=== PATIENT | male | born 2005 | race Two or more races ===

== ENCOUNTER 2025-02-02 18:57 | Emergency (ER) | payer OTHER ==
[2025-02-02] MEDS ORDERED: Amoxicillin/Potassium Clav 875 MG TAB ONE (19:48)
[2025-02-02] MEDS ORDERED: Rabies Vaccine Human 2.5 UNITS VIAL ONE (19:49)
[2025-02-02] MEDS ORDERED: Rabies Immune Globulin/PF 300 UNITS/ML VIAL ONE (19:50)
[2025-02-02] MEDS ORDERED: Bacitracin 1 PK ONE (20:19)
== END 2025-02-02 20:28 | disposition home or self-care (01) ==
LOC: ERS 18:57
DX: S81.851A Open bite, right lower leg, initial encounter (principal); Z23 Encounter for immunization; W54.0XXA Bitten by dog, initial encounter
CPT/HCPCS: 90375; 90471; 90675; 96372